=== PATIENT | male | born 1960 | race Caucasian/White ===

== ENCOUNTER 2024-04-14 17:57 | Inpatient (IN) ==
[2024-04-14 21:14] LABS: Hematocrit 48.5 % (38-53); Hemoglobin 16.4 g/dL (13.2-16.3); Mean Corpuscular Hemoglobin 29.3 pg (27-33); Mean Corpuscular Hgb Conc 33.9 g/dL (31-36); Mean Corpuscular Volume 86.6 fL (80-97); Mean Platelet Volume 7.8 fL (7.5-11.2); Platelet Count 265 10^3/uL (150-450); Red Blood Count 5.61 10^6/uL (4.06-5.63); White Blood Count 22.6 10^3/uL (3.6-10.2)
[2024-04-14] MEDS: NS 0.9% 1000 ml BAG 1,000 ML IV ONE (21:45)
[2024-04-14] MEDS: Ondansetron 4 mg VIAL 2 MG/ML 2 ml VIAL IV ONE (21:45)
[2024-04-14 21:46] LABS: ABS Basophils 0.1 10^3/uL (0.0-0.1); ABS Lymphocytes 0.9 10^3/uL (1.0-4.8); ABS Monocytes 2.4 10^3/uL (0.0-1.1); ABS Neutrophils 19.2 10^3/uL (1.5-7.6); ABS Nucleated RBC 0.01 10^3/ul; Lymphocyte % 4.1 %
[2024-04-14 21:53] LABS: ALT 17 U/L (7-52); AST 16 U/L (13-39); Albumin 3.8 g/dL (3.2-5.2); Albumin/Globulin Ratio 1.4 (1-3); Alkaline Phosphatase 58 U/L (35-149); Anion Gap 19 mmol/L (2-16); Blood Urea Nitrogen 15 mg/dL (6-24); CO2 Carbon Dioxide 17 mmol/L (22-32); Calcium 8.8 mg/dL (8.6-10.3); Chloride 98 mmol/L (101-111); Creatinine, Serum 1.28 mg/dL (0.67-1.17); Globulin 2.7 g/dL (2-4); Glucose 89 mg/dL (70-100); Lipase < 10 U/L (11.0-82.0); Potassium 4.1 mmol/L (3.5-5.0); Sodium 134 mmol/L (135-145); Total Bilirubin 1.2 mg/dL (0.2-1.0); Total Protein 6.5 g/dL (6.4-8.9); eGFR CKD-EPI 63.7 (>60)
[2024-04-14] MEDS: Iohexol 350 (CONTRAST) 500 ML MDV IV ONE (22:35)
[2024-04-14] MEDS: Acetaminophen IV 1 GM/100ML 1,000 MG/100 ML BAG IV ONE (22:57)
[2024-04-15] MEDS: Piperacillin/Tazobac 3.375 BAG 3.375 GM/100 ML BAG IV ONE (00:23)
[2024-04-15] MEDS: NS 0.9% 1000 ml BAG 1,000 ML IV ONE (00:23)
[2024-04-15] MEDS ORDERED: cefTRIAXone 1 gm/50 mL D5W 1 GM/50 ML BAG IV SCH (03:15)
[2024-04-15 03:30] LABS: Venous Bicarbonate HCO3 17.2 mmol/L (24-28)
[2024-04-15] MEDS: Lactated Ringers 1000 ml BAG 1,000 ML IV SCH ×2 (03:57→18:20)
[2024-04-15] MEDS ORDERED: metroNIDAZOLE IV 500 MG/100ML 500 MG/100 ML BAG IVPB SCH (04:00)
[2024-04-15 04:17] LABS: Hematocrit 43.4 % (38-53); Hemoglobin 14.8 g/dL (13.2-16.3); Mean Corpuscular Hemoglobin 29.4 pg (27-33); Mean Corpuscular Hgb Conc 34.2 g/dL (31-36); Mean Corpuscular Volume 85.9 fL (80-97); Mean Platelet Volume 7.8 fL (7.5-11.2); Platelet Count 246 10^3/uL (150-450); Red Blood Count 5.04 10^6/uL (4.06-5.63); Red Cell Distribution Width 14.2 % (12-17); White Blood Count 21.1 10^3/uL (3.6-10.2)
[2024-04-15 04:42] LABS: ABS Basophils 0.1 10^3/uL (0.0-0.1); ABS Lymphocytes 1.2 10^3/uL (1.0-4.8); ABS Monocytes 2.5 10^3/uL (0.0-1.1); ABS Neutrophils 17.3 10^3/uL (1.5-7.6); ABS Nucleated RBC 0.03 10^3/ul; Lymphocyte % 5.7 %; Nucleated Red Blood Cells % 0.1 %/100WBC (0.0-0.8)
[2024-04-15 05:08] LABS: C Reactive Protein 97.87 mg/L (<8.01); Calcium 7.7 mg/dL (8.6-10.3); Creatinine, Serum 1.15 mg/dL (0.67-1.17); eGFR CKD-EPI 72.4 (>60)
[2024-04-15 06:17] LABS: Urine Appearance Clear; Urine Bacteria Absent /HPF (Absent); Urine Bilirubin Negative (Negative); Urine Blood 1+ (Negative); Urine Color Yellow; Urine Glucose Negative (Negative); Urine Ketones 4+ (Negative); Urine Nitrite Negative (Negative); Urine Protein 1+ (>=30 mg/dL) (Negative); Urine Red Blood Cell 2+(6-10/hpf) /HPF (0-Trace); Urine Specific Gravity >1.050 (1.002-1.030); Urine Urobilinogen Negative (Negative); Urine White Blood Cell Trace(0-5/hpf) /HPF (0-Trace)
[2024-04-15] MEDS: metroNIDAZOLE IV 500 MG/100ML 500 MG/100 ML BAG IVPB SCH ×2 (08:54→18:20)
[2024-04-15] MEDS: cefTRIAXone 1 gm/50 mL D5W 1 GM/50 ML BAG IV SCH (08:54)
[2024-04-15] MEDS: Metoprolol Tartrate 5 mg VIAL 5 ml VIAL (1 mg/ml) IV PRN (08:54)
[2024-04-15] MEDS ORDERED: Metoprolol Tartrate 5 mg VIAL 5 ml VIAL (1 mg/ml) IV PRN (10:40)
[2024-04-15 11:40] LABS: Magnesium 1.7 mg/dL (1.9-2.7); Phosphorus 5.5 mg/dL (2.5-5.0)
[2024-04-15 11:47] LABS: TSH Ultra Thyroid Stim Horm 7.15 mcIU/mL (0.34-5.60)
[2024-04-15] MEDS: Magnesium Sulfate 2 gm BAG 2 GM/50 ML BAG IVPB ONE (12:53)
[2024-04-15] MEDS: Magnesium Sulfate IV 1GM/100ML 1 GM/100 ML BAG IV ONE (14:08)
[2024-04-15] MEDS: CALCIUM GLUCONATE 1GM/50ML NS 1 GM/50 ML BAG IV ONE (14:49)
[2024-04-15] MEDS ORDERED: metroNIDAZOLE IV 500 MG/100ML 100 ML IVPB SCH (17:00)
[2024-04-15] MEDS: Enoxaparin 40 MG/0.4 ML SYR SUBCUT SCH (22:11)
[2024-04-16] MEDS: FLUVASTATIN 20 MG PO SCH (08:23)
[2024-04-16 08:30] LABS: Hematocrit 41.6 % (38-53); Hemoglobin 14.3 g/dL (13.2-16.3); Mean Corpuscular Hemoglobin 29.3 pg (27-33); Mean Corpuscular Hgb Conc 34.3 g/dL (31-36); Mean Corpuscular Volume 85.3 fL (80-97); Mean Platelet Volume 7.9 fL (7.5-11.2); Platelet Count 222 10^3/uL (150-450); Red Blood Count 4.87 10^6/uL (4.06-5.63); White Blood Count 17.6 10^3/uL (3.6-10.2)
[2024-04-16 08:43] LABS: ABS Lymphocytes 0.8 10^3/uL (1.0-4.8); ABS Monocytes 2.1 10^3/uL (0.0-1.1); ABS Neutrophils 14.6 10^3/uL (1.5-7.6); Lymphocyte % 4.6 %
[2024-04-16 09:07] LABS: Calcium 7.6 mg/dL (8.6-10.3); Creatinine, Serum 0.96 mg/dL (0.67-1.17); Magnesium 1.9 mg/dL (1.9-2.7); Potassium 3.9 mmol/L (3.5-5.0); eGFR CKD-EPI 89.9 (>60)
[2024-04-16] MEDS: Acetaminophen IV 1 GM/100ML 1,000 MG/100 ML BAG IV PRN (15:15)
[2024-04-16] MEDS ORDERED: Morphine 2 MG/ML SYRINGE IV PRN (21:00)
[2024-04-17] MEDS ORDERED: Morphine 2 MG/ML SYRINGE IV PRN (03:00)
[2024-04-17 07:56] LABS: Hematocrit 42.2 % (38-53); Hemoglobin 14.2 g/dL (13.2-16.3); Mean Corpuscular Hemoglobin 28.7 pg (27-33); Mean Corpuscular Hgb Conc 33.7 g/dL (31-36); Mean Corpuscular Volume 85.1 fL (80-97); Mean Platelet Volume 7.9 fL (7.5-11.2); Platelet Count 210 10^3/uL (150-450); Red Blood Count 4.96 10^6/uL (4.06-5.63); Red Cell Distribution Width 13.9 % (12-17); White Blood Count 17.6 10^3/uL (3.6-10.2)
[2024-04-17 08:30] LABS: C Reactive Protein 77.03 mg/L (<8.01); Calcium 7.4 mg/dL (8.6-10.3); Creatinine, Serum 0.91 mg/dL (0.67-1.17); Magnesium 1.8 mg/dL (1.9-2.7); Phosphorus 2.3 mg/dL (2.5-5.0); Potassium 3.6 mmol/L (3.5-5.0); eGFR CKD-EPI 95.9 (>60)
[2024-04-17] MEDS ORDERED: KCL 20 MEQ/100 ML IVPREMIX 20 MEQ/100 ML BAG IV SCH ×2 (09:00→11:00)
[2024-04-17 09:24] LABS: ABS Basophils 0.1 10^3/uL (0.0-0.1); ABS Monocytes 1.9 10^3/uL (0.0-1.1); ABS Neutrophils 14.7 10^3/uL (1.5-7.6); ABS Nucleated RBC 0.01 10^3/ul; Eosinophil % 0.1 %; Lymphocyte % 5.5 %; Nucleated Red Blood Cells % 0.1 %/100WBC (0.0-0.8)
[2024-04-17] MEDS: Magnesium Sulfate 2 gm BAG 2 GM/50 ML BAG IVPB ONE (10:26)
[2024-04-17] MEDS: Potassium Chlor 20 meq TAB.ER PO ONE (10:26)
[2024-04-17] MEDS: Lactated Ringers 1000 ml BAG 1,000 ML IV ONE (10:54)
[2024-04-17] MEDS: Metoprolol Tartrate 5 mg VIAL 5 ml VIAL (1 mg/ml) IV ONE (12:12)
[2024-04-17] MEDS: Lactated Ringers 1000 ml BAG 1,000 ML IV SCH (14:01)
[2024-04-17] MEDS: Potassium Phosphate IV 15 MMOL in NS 0.9% 250 ml 250 ML IVPB ONE (14:06)
[2024-04-17 17:44] LABS: Hematocrit 43.2 % (38-53); Hemoglobin 14.7 g/dL (13.2-16.3); Mean Corpuscular Hgb Conc 33.9 g/dL (31-36); Mean Corpuscular Volume 85.5 fL (80-97); Mean Platelet Volume 7.9 fL (7.5-11.2); Platelet Count 226 10^3/uL (150-450); Red Blood Count 5.05 10^6/uL (4.06-5.63); Red Cell Distribution Width 14.1 % (12-17); White Blood Count 19.6 10^3/uL (3.6-10.2)
[2024-04-17 18:15] LABS: Albumin 2.6 g/dL (3.2-5.2); Albumin/Globulin Ratio 1.4 (1-3); Calcium 7.7 mg/dL (8.6-10.3); Creatinine, Serum 1.04 mg/dL (0.67-1.17); Globulin 1.8 g/dL (2-4); Magnesium 2.1 mg/dL (1.9-2.7); Phosphorus 2.9 mg/dL (2.5-5.0); Potassium 4.5 mmol/L (3.5-5.0); Total Bilirubin 0.4 mg/dL (0.2-1.0); Total Protein 4.4 g/dL (6.4-8.9); eGFR CKD-EPI 81.7 (>60)
[2024-04-17 19:51] LABS: ABS Basophils 0.1 10^3/uL (0.0-0.1); ABS Lymphocytes 1.1 10^3/uL (1.0-4.8); ABS Neutrophils 16.4 10^3/uL (1.5-7.6); ABS Nucleated RBC 0.01 10^3/ul; Lymphocyte % 5.6 %; Nucleated Red Blood Cells % 0.1 %/100WBC (0.0-0.8)
[2024-04-18 06:35] LABS: Hematocrit 41.4 % (38-53); Hemoglobin 13.9 g/dL (13.2-16.3); Mean Corpuscular Hemoglobin 28.7 pg (27-33); Mean Corpuscular Hgb Conc 33.6 g/dL (31-36); Mean Corpuscular Volume 85.3 fL (80-97); Mean Platelet Volume 8.3 fL (7.5-11.2); Platelet Count 220 10^3/uL (150-450); Red Blood Count 4.86 10^6/uL (4.06-5.63); Red Cell Distribution Width 14.1 % (12-17); White Blood Count 20.4 10^3/uL (3.6-10.2)
[2024-04-18 06:41] LABS: ABS Basophils 0.1 10^3/uL (0.0-0.1); ABS Lymphocytes 1.2 10^3/uL (1.0-4.8); ABS Monocytes 1.9 10^3/uL (0.0-1.1); ABS Neutrophils 17.3 10^3/uL (1.5-7.6); ABS Nucleated RBC 0.01 10^3/ul; Eosinophil % 0.1 %; Lymphocyte % 5.7 %
[2024-04-18 09:12] LABS: Calcium 7.3 mg/dL (8.6-10.3); Creatinine, Serum 0.97 mg/dL (0.67-1.17); Potassium 3.4 mmol/L (3.5-5.0); eGFR CKD-EPI 88.8 (>60)
[2024-04-18] MEDS: Potassium Chlor 20 meq TAB.ER PO ONE (10:53)
[2024-04-18] MEDS: Furosemide 20 mg/2 ml IV VIAL IV ONE (10:54)
[2024-04-18] MEDS ORDERED: Vancomycin- *ENEMA* PR 500MG PR SCH (11:00)
[2024-04-18] MEDS: Iohexol 300 (CONTRAST) 10 ML SDV IV ONE (11:42)
[2024-04-18] MEDS: CMCS: Fidaxomicin 200 mg TAB (NF) PO SCH (13:45)
[2024-04-18 14:33] LABS: Hematocrit 46.9 % (38-53); Hemoglobin 15.5 g/dL (13.2-16.3); Mean Corpuscular Hemoglobin 28.4 pg (27-33); Mean Platelet Volume 7.9 fL (7.5-11.2); Platelet Count 229 10^3/uL (150-450); Red Blood Count 5.45 10^6/uL (4.06-5.63); Red Cell Distribution Width 14.2 % (12-17); White Blood Count 24.2 10^3/uL (3.6-10.2)
[2024-04-18 15:10] LABS: ABS Basophils 0.1 10^3/uL (0.0-0.1); ABS Lymphocytes 1.2 10^3/uL (1.0-4.8); ABS Nucleated RBC 0.02 10^3/ul; Eosinophil % 0.1 %; Lymphocyte % 4.8 %; Nucleated Red Blood Cells % 0.1 %/100WBC (0.0-0.8)
[2024-04-18 15:11] LABS: Calcium 7.5 mg/dL (8.6-10.3); Creatinine, Serum 1.05 mg/dL (0.67-1.17); Potassium 3.5 mmol/L (3.5-5.0); eGFR CKD-EPI 80.8 (>60)
[2024-04-18] MEDS: cefTRIAXone 2 gm/50 mL D5W 2 GM/50 ML BAG IV SCH (16:57)
[2024-04-18 17:16] LABS: Calprotectin 1821 mcg/g
[2024-04-18] MEDS: Lactated Ringers 1000 ml BAG 1,000 ML IV ONE (17:29)
[2024-04-18] MEDS: KCL 20 MEQ/100 ML IVPREMIX 20 MEQ/100 ML BAG IV SCH (17:34)
[2024-04-18 19:24] LABS: Magnesium 1.9 mg/dL (1.9-2.7)
[2024-04-18 19:37] LABS: T4, Total 10.5 mcg/dL (6.09-12.23)
[2024-04-18] MEDS: Morphine 2 MG/ML SYRINGE IV PRN (20:59)
[2024-04-19 06:46] LABS: Hematocrit 45.4 % (38-53); Hemoglobin 15.2 g/dL (13.2-16.3); Mean Corpuscular Hemoglobin 28.9 pg (27-33); Mean Corpuscular Hgb Conc 33.5 g/dL (31-36); Mean Corpuscular Volume 86.2 fL (80-97); Platelet Count 220 10^3/uL (150-450); Red Blood Count 5.27 10^6/uL (4.06-5.63); Red Cell Distribution Width 14.5 % (12-17); White Blood Count 27.5 10^3/uL (3.6-10.2)
[2024-04-19 07:22] LABS: Albumin 2.4 g/dL (3.2-5.2); Albumin/Globulin Ratio 1.3 (1-3); Calcium 7.5 mg/dL (8.6-10.3); Creatinine, Serum 1.17 mg/dL (0.67-1.17); Globulin 1.8 g/dL (2-4); Magnesium 1.9 mg/dL (1.9-2.7); Total Bilirubin 0.4 mg/dL (0.2-1.0); Total Protein 4.2 g/dL (6.4-8.9); eGFR CKD-EPI 70.9 (>60)
[2024-04-19 08:10] LABS: ABS Basophils 0.1 10^3/uL (0.0-0.1); ABS Lymphocytes 1.2 10^3/uL (1.0-4.8); ABS Monocytes 2.1 10^3/uL (0.0-1.1); ABS Neutrophils 24.1 10^3/uL (1.5-7.6); ABS Nucleated RBC 0.02 10^3/ul; Eosinophil % 0.2 %; Lymphocyte % 4.4 %; Nucleated Red Blood Cells % 0.1 %/100WBC (0.0-0.8)
[2024-04-19 12:01] LABS: Urine Appearance Clear; Urine Bilirubin Negative (Negative); Urine Blood Trace (Negative); Urine Color Yellow; Urine Glucose Negative (Negative); Urine Ketones 2+ (Negative); Urine Nitrite Negative (Negative); Urine Protein 1+ (>=30 mg/dL) (Negative); Urine Urobilinogen Negative (Negative); Urine pH 6.5 (5.0-8.0)
[2024-04-19 12:04] LABS: Urine Bacteria Absent /HPF (Absent); Urine Red Blood Cell Absent /HPF (0-Trace); Urine Squamous Epithelial Cell Present /HPF (Absent); Urine White Blood Cell Trace(0-5/hpf) /HPF (0-Trace)
[2024-04-20 05:25] LABS: ALT 129 U/L (7-52); Albumin 2.4 g/dL (3.2-5.2); Albumin/Globulin Ratio 1.3 (1-3); Alkaline Phosphatase 144 U/L (35-149); Anion Gap 12 mmol/L (2-16); Blood Urea Nitrogen 15 mg/dL (6-24); CO2 Carbon Dioxide 22 mmol/L (22-32); Calcium 7.4 mg/dL (8.6-10.3); Chloride 99 mmol/L (101-111); Creatinine, Serum 0.86 mg/dL (0.67-1.17); Globulin 1.9 g/dL (2-4); Glucose 100 mg/dL (70-100); Magnesium 1.9 mg/dL (1.9-2.7); Sodium 133 mmol/L (135-145); Total Bilirubin 0.4 mg/dL (0.2-1.0); Total Protein 4.3 g/dL (6.4-8.9); eGFR CKD-EPI 98.5 (>60)
[2024-04-20 05:39] LABS: ABS Basophils 0.1 10^3/uL (0.0-0.1); ABS Eosinophils 0.1 10^3/uL (0.0-0.5); ABS Lymphocytes 1.5 10^3/uL (1.0-4.8); ABS Monocytes 2.3 10^3/uL (0.0-1.1); ABS Neutrophils 20.8 10^3/uL (1.5-7.6); ABS Nucleated RBC 0.01 10^3/ul; Eosinophil % 0.6 %; Hematocrit 43.5 % (38-53); Hemoglobin 14.7 g/dL (13.2-16.3); Lymphocyte % 6.1 %; Mean Corpuscular Hemoglobin 28.8 pg (27-33); Mean Corpuscular Hgb Conc 33.7 g/dL (31-36); Mean Corpuscular Volume 85.3 fL (80-97); Mean Platelet Volume 8.1 fL (7.5-11.2); Platelet Count 207 10^3/uL (150-450); Red Cell Distribution Width 14.4 % (12-17); White Blood Count 24.8 10^3/uL (3.6-10.2)
[2024-04-20 06:44] LABS: Potassium, Whole Blood 3.9 mmol/L (3.4-4.5)
[2024-04-20] MEDS: Lactated Ringers 1000 ml BAG 1,000 ML IV SCH (20:22)
[2024-04-20] MEDS ORDERED: Albuterol/Ipratropium NEB.SOL (2.5/0.5 MG) 3 ML NEB.SOLN INH PRN (23:55)
[2024-04-21 05:47] LABS: ABS Lymphocytes 1.1 10^3/uL (1.0-4.8); ABS Monocytes 1.8 10^3/uL (0.0-1.1); ABS Neutrophils 19.2 10^3/uL (1.5-7.6); ABS Nucleated RBC 0.03 10^3/ul; Eosinophil % 0.2 %; Hematocrit 42.4 % (38-53); Hemoglobin 14.3 g/dL (13.2-16.3); Lymphocyte % 4.8 %; Mean Corpuscular Hemoglobin 28.8 pg (27-33); Mean Corpuscular Hgb Conc 33.8 g/dL (31-36); Mean Corpuscular Volume 85.2 fL (80-97); Nucleated Red Blood Cells % 0.1 %/100WBC (0.0-0.8); Platelet Count 151 10^3/uL (150-450); Red Blood Count 4.98 10^6/uL (4.06-5.63); Red Cell Distribution Width 14.3 % (12-17); White Blood Count 22.2 10^3/uL (3.6-10.2)
[2024-04-21 06:07] LABS: ALT 87 U/L (7-52); Albumin 2.2 g/dL (3.2-5.2); Albumin/Globulin Ratio 1.2 (1-3); Alkaline Phosphatase 140 U/L (35-149); Anion Gap 10 mmol/L (2-16); Blood Urea Nitrogen 14 mg/dL (6-24); CO2 Carbon Dioxide 22 mmol/L (22-32); Calcium 6.9 mg/dL (8.6-10.3); Chloride 101 mmol/L (101-111); Creatinine, Serum 0.71 mg/dL (0.67-1.17); Globulin 1.8 g/dL (2-4); Glucose 113 mg/dL (70-100); Sodium 133 mmol/L (135-145); Total Bilirubin 0.4 mg/dL (0.2-1.0); eGFR CKD-EPI 104.4 (>60)
[2024-04-21 07:18] LABS: Albumin 2.4 g/dL (3.2-5.2); Albumin/Globulin Ratio 1.4 (1-3); Calcium 7.3 mg/dL (8.6-10.3); Creatinine, Serum 0.9 mg/dL (0.67-1.17); Globulin 1.7 g/dL (2-4); Potassium 3.5 mmol/L (3.5-5.0); Total Bilirubin 0.4 mg/dL (0.2-1.0); Total Protein 4.1 g/dL (6.4-8.9); eGFR CKD-EPI 97.2 (>60)
[2024-04-21] MEDS: Lactated Ringers 1000 ml BAG 1,000 ML IV SCH ×2 (09:35→20:35)
[2024-04-21] MEDS: KCL 20 MEQ/100 ML IVPREMIX 20 MEQ/100 ML BAG IV SCH (09:43)
[2024-04-21] MEDS ORDERED: Naloxone 0.4 mg VIAL 0.4 mg/ml 1 ml VIAL IV PRN (12:08)
[2024-04-21] MEDS ORDERED: Ondansetron 4 mg VIAL 2 MG/ML 2 ml VIAL IV PRN (12:08)
[2024-04-21] MEDS ORDERED: Rocuronium 50 mg VIAL 10 mg/ml 5 ml VIAL (50 mg) ONE ×2 (13:48→16:12)
[2024-04-21] MEDS ORDERED: Lidocaine 2% PF 5 ML VIAL ONE (13:48)
[2024-04-21] MEDS ORDERED: Propofol 10 MG/ML 20 ML BTL ONE (13:48)
[2024-04-21] MEDS ORDERED: fentaNYL 250 mcg/5 ml 50 MCG/ML 5 ml VIAL (250 MCG) ONE (13:50)
[2024-04-21] MEDS ORDERED: Albumin Human 5% 25.0 GM/500 ML BTL IV ONE (14:04)
[2024-04-21] MEDS ORDERED: Midazolam 2 mg/2 ml VIAL 1 mg/ml 2 ml VIAL (2 mg) ONE (14:51)
[2024-04-21] MEDS ORDERED: Ondansetron 4 mg VIAL 2 MG/ML 2 ml VIAL ONE (15:32)
[2024-04-21] MEDS ORDERED: Dexamethasone IV 4 MG/ML VIAL 1 ml VIAL ONE (15:32)
[2024-04-21] MEDS ORDERED: HYDROmorphone 0.5 MG/0.5 ML SYRINGE ONE (15:38)
[2024-04-21] MEDS ORDERED: fentaNYL 100 mcg/2 ml 50 MCG/ML VIAL ONE ×2 (16:27→17:43)
[2024-04-21] MEDS: fentaNYL 100 mcg/2 ml 50 MCG/ML VIAL IV PRN (17:46)
[2024-04-21] MEDS: Metoprolol Tartrate 5 mg VIAL 5 ml VIAL (1 mg/ml) IV PRN (19:37)
[2024-04-21 20:17] LABS: Hematocrit 40.2 % (38-53); Hemoglobin 13.6 g/dL (13.2-16.3); Mean Corpuscular Hgb Conc 33.8 g/dL (31-36); Mean Corpuscular Volume 85.7 fL (80-97); Mean Platelet Volume 8.2 fL (7.5-11.2); Platelet Count 176 10^3/uL (150-450); Red Blood Count 4.69 10^6/uL (4.06-5.63); Red Cell Distribution Width 14.3 % (12-17); White Blood Count 25.8 10^3/uL (3.6-10.2)
[2024-04-21] MEDS: cefTRIAXone 2 gm/50 mL D5W 2 GM/50 ML BAG IV SCH (20:41)
[2024-04-21] MEDS: metroNIDAZOLE IV 500 MG/100ML 500 MG/100 ML BAG IVPB SCH (20:44)
[2024-04-21 21:04] LABS: ABS Basophils 0.1 10^3/uL (0.0-0.1); ABS Lymphocytes 0.5 10^3/uL (1.0-4.8); ABS Monocytes 0.7 10^3/uL (0.0-1.1); ABS Neutrophils 24.5 10^3/uL (1.5-7.6); ABS Nucleated RBC 0.01 10^3/ul; Eosinophil % 0.1 %; Lymphocyte % 1.9 %
[2024-04-21 21:09] LABS: Anion Gap 12 mmol/L (2-16); Blood Urea Nitrogen 14 mg/dL (6-24); CO2 Carbon Dioxide 16 mmol/L (22-32); Calcium 7.1 mg/dL (8.6-10.3); Chloride 103 mmol/L (101-111); Creatinine, Serum 0.85 mg/dL (0.67-1.17); Glucose 154 mg/dL (70-100); Sodium 131 mmol/L (135-145); eGFR CKD-EPI 98.9 (>60)
[2024-04-21 21:51] LABS: Magnesium 1.7 mg/dL (1.9-2.7); Potassium Redraw 4.3 mmol/L (3.5-5.0)
[2024-04-22 05:12] LABS: Hematocrit 37.4 % (38-53); Hemoglobin 12.5 g/dL (13.2-16.3); Mean Corpuscular Hemoglobin 28.3 pg (27-33); Mean Corpuscular Hgb Conc 33.3 g/dL (31-36); Mean Corpuscular Volume 84.9 fL (80-97); Mean Platelet Volume 8.5 fL (7.5-11.2); Platelet Count 179 10^3/uL (150-450); Red Cell Distribution Width 14.4 % (12-17); White Blood Count 19.7 10^3/uL (3.6-10.2)
[2024-04-22 06:30] LABS: Anion Gap 6 mmol/L (2-16); Blood Urea Nitrogen 15 mg/dL (6-24); CO2 Carbon Dioxide 25 mmol/L (22-32); Chloride 100 mmol/L (101-111); Creatinine, Serum 0.78 mg/dL (0.67-1.17); Glucose 139 mg/dL (70-100); Sodium 131 mmol/L (135-145); eGFR CKD-EPI 101.5 (>60)
[2024-04-22 06:32] LABS: ABS Lymphocytes 0.7 10^3/uL (1.0-4.8); ABS Monocytes 1.1 10^3/uL (0.0-1.1); ABS Neutrophils 17.8 10^3/uL (1.5-7.6); ABS Nucleated RBC 0.02 10^3/ul; Lymphocyte % 3.7 %; Nucleated Red Blood Cells % 0.1 %/100WBC (0.0-0.8)
[2024-04-22] MEDS: Magnesium Sulfate 2 gm BAG 2 GM/50 ML BAG IVPB ONE (08:34)
[2024-04-22] MEDS: CALCIUM GLUCONATE 1GM/50ML NS 1 GM/50 ML BAG IV SCH (10:15)
[2024-04-22] MEDS: Enoxaparin 40 MG/0.4 ML SYR SUBCUT SCH (14:09)
[2024-04-22] MEDS: Morphine 2 MG/ML SYRINGE IV PRN (16:38)
[2024-04-22] MEDS: Metoprolol Tartrate 5 mg VIAL 5 ml VIAL (1 mg/ml) IV PRN (17:16)
[2024-04-22] MEDS: PPN (PERIPHERAL) 24 HR with D10W 1000 ml BAG 1,000 ML, Amino Acid Infusion 10% 850 ML, ... IV SCH (17:20)
[2024-04-22 20:01] LABS: Potassium Redraw 5.3 mmol/L (3.5-5.0)
[2024-04-22] MEDS ORDERED: Ondansetron 4 mg VIAL 2 MG/ML 2 ml VIAL IV PRN (21:47)
[2024-04-23 06:04] LABS: Hematocrit 36.4 % (38-53); Hemoglobin 12.5 g/dL (13.2-16.3); Mean Corpuscular Hemoglobin 29.2 pg (27-33); Mean Corpuscular Hgb Conc 34.4 g/dL (31-36); Mean Corpuscular Volume 85.1 fL (80-97); Platelet Count 204 10^3/uL (150-450); Red Blood Count 4.28 10^6/uL (4.06-5.63); Red Cell Distribution Width 14.2 % (12-17); White Blood Count 16.9 10^3/uL (3.6-10.2)
[2024-04-23 06:29] LABS: Albumin 2.3 g/dL (3.2-5.2); Albumin/Globulin Ratio 1.4 (1-3); Calcium 7.2 mg/dL (8.6-10.3); Creatinine, Serum 0.55 mg/dL (0.67-1.17); Globulin 1.7 g/dL (2-4); Magnesium 1.9 mg/dL (1.9-2.7); Phosphorus 1.9 mg/dL (2.5-5.0); Potassium 3.6 mmol/L (3.5-5.0); Total Bilirubin 0.3 mg/dL (0.2-1.0); eGFR CKD-EPI 112.8 (>60)
[2024-04-23 08:17] LABS: ABS Basophils 0.1 10^3/uL (0.0-0.1); ABS Eosinophils 0.1 10^3/uL (0.0-0.5); ABS Lymphocytes 0.9 10^3/uL (1.0-4.8); ABS Monocytes 1.5 10^3/uL (0.0-1.1); ABS Neutrophils 14.5 10^3/uL (1.5-7.6); ABS Nucleated RBC 0.02 10^3/ul; Eosinophil % 0.3 %; Lymphocyte % 5.2 %; Nucleated Red Blood Cells % 0.1 %/100WBC (0.0-0.8)
[2024-04-23] MEDS: Potassium Phosphate IV 15 MMOL in NS 0.9% 250 ml 250 ML IVPB ONE (11:03)
[2024-04-23] MEDS: PPN (PERIPHERAL) 24 HR with D10W 1000 ml BAG 1,000 ML, Amino Acid Infusion 10% 850 ML, ... IV SCH (17:32)
[2024-04-24 08:33] LABS: ABS Eosinophils 0.1 10^3/uL (0.0-0.5); ABS Lymphocytes 1.2 10^3/uL (1.0-4.8); ABS Monocytes 1.2 10^3/uL (0.0-1.1); ABS Neutrophils 12.6 10^3/uL (1.5-7.6); ABS Nucleated RBC 0.02 10^3/ul; Eosinophil % 0.7 %; Hematocrit 36.2 % (38-53); Hemoglobin 12.2 g/dL (13.2-16.3); Lymphocyte % 7.8 %; Mean Corpuscular Hemoglobin 28.7 pg (27-33); Mean Corpuscular Hgb Conc 33.7 g/dL (31-36); Mean Corpuscular Volume 85.1 fL (80-97); Nucleated Red Blood Cells % 0.1 %/100WBC (0.0-0.8); Platelet Count 244 10^3/uL (150-450); Red Blood Count 4.26 10^6/uL (4.06-5.63); Red Cell Distribution Width 14.3 % (12-17); White Blood Count 15.2 10^3/uL (3.6-10.2)
[2024-04-24 09:19] LABS: Calcium 7.4 mg/dL (8.6-10.3); Creatinine, Serum 0.57 mg/dL (0.67-1.17); Potassium 3.9 mmol/L (3.5-5.0); eGFR CKD-EPI 111.5 (>60)
[2024-04-24 11:44] LABS: Magnesium 1.9 mg/dL (1.9-2.7); Phosphorus 2.9 mg/dL (2.5-5.0)
[2024-04-24] MEDS: Morphine 2 MG/ML SYRINGE IV PRN (13:57)
[2024-04-25 06:50] LABS: ABS Basophils 0.1 10^3/uL (0.0-0.1); ABS Eosinophils 0.2 10^3/uL (0.0-0.5); ABS Lymphocytes 1.3 10^3/uL (1.0-4.8); ABS Monocytes 0.6 10^3/uL (0.0-1.1); ABS Nucleated RBC 0.02 10^3/ul; Eosinophil % 1.7 %; Hematocrit 33.5 % (38-53); Hemoglobin 11.6 g/dL (13.2-16.3); Lymphocyte % 9.5 %; Mean Corpuscular Hemoglobin 29.6 pg (27-33); Mean Corpuscular Hgb Conc 34.6 g/dL (31-36); Mean Corpuscular Volume 85.5 fL (80-97); Nucleated Red Blood Cells % 0.1 %/100WBC (0.0-0.8); Platelet Count 250 10^3/uL (150-450); Red Blood Count 3.92 10^6/uL (4.06-5.63); Red Cell Distribution Width 14.2 % (12-17); White Blood Count 13.2 10^3/uL (3.6-10.2)
[2024-04-25 07:22] LABS: Albumin 2.3 g/dL (3.2-5.2); Albumin/Globulin Ratio 1.2 (1-3); Calcium 7.5 mg/dL (8.6-10.3); Creatinine, Serum 0.58 mg/dL (0.67-1.17); Globulin 1.9 g/dL (2-4); Potassium 4.3 mmol/L (3.5-5.0); Total Bilirubin 0.3 mg/dL (0.2-1.0); Total Protein 4.2 g/dL (6.4-8.9)
[2024-04-25] MEDS: PPN (PERIPHERAL) 24 HR with D10W 1000 ml BAG 1,000 ML, Amino Acid Infusion 10% 850 ML, ... IV SCH (16:06)
[2024-04-26 06:25] LABS: ABS Eosinophils 0.2 10^3/uL (0.0-0.5); ABS Lymphocytes 1.1 10^3/uL (1.0-4.8); ABS Monocytes 0.6 10^3/uL (0.0-1.1); ABS Neutrophils 9.5 10^3/uL (1.5-7.6); ABS Nucleated RBC 0.01 10^3/ul; Eosinophil % 1.9 %; Hematocrit 32.9 % (38-53); Hemoglobin 11.3 g/dL (13.2-16.3); Mean Corpuscular Hemoglobin 29.4 pg (27-33); Mean Corpuscular Hgb Conc 34.3 g/dL (31-36); Mean Corpuscular Volume 85.5 fL (80-97); Mean Platelet Volume 8.1 fL (7.5-11.2); Nucleated Red Blood Cells % 0.1 %/100WBC (0.0-0.8); Platelet Count 292 10^3/uL (150-450); Red Blood Count 3.85 10^6/uL (4.06-5.63); White Blood Count 11.5 10^3/uL (3.6-10.2)
[2024-04-26 06:38] LABS: Albumin 2.4 g/dL (3.2-5.2); Albumin/Globulin Ratio 1.3 (1-3); Calcium 7.5 mg/dL (8.6-10.3); Creatinine, Serum 0.65 mg/dL (0.67-1.17); Globulin 1.9 g/dL (2-4); Potassium 4.4 mmol/L (3.5-5.0); Total Bilirubin 0.3 mg/dL (0.2-1.0); Total Protein 4.3 g/dL (6.4-8.9); eGFR CKD-EPI 107.2 (>60)
[2024-04-27 05:45] LABS: ABS Basophils 0.1 10^3/uL (0.0-0.1); ABS Eosinophils 0.2 10^3/uL (0.0-0.5); ABS Lymphocytes 1.5 10^3/uL (1.0-4.8); ABS Monocytes 0.8 10^3/uL (0.0-1.1); ABS Neutrophils 8.9 10^3/uL (1.5-7.6); Eosinophil % 1.9 %; Hematocrit 36.2 % (38-53); Hemoglobin 11.9 g/dL (13.2-16.3); Lymphocyte % 12.9 %; Mean Corpuscular Hemoglobin 28.2 pg (27-33); Mean Corpuscular Hgb Conc 32.9 g/dL (31-36); Mean Corpuscular Volume 85.8 fL (80-97); Mean Platelet Volume 7.9 fL (7.5-11.2); Platelet Count 376 10^3/uL (150-450); Red Blood Count 4.22 10^6/uL (4.06-5.63); Red Cell Distribution Width 14.6 % (12-17); White Blood Count 11.4 10^3/uL (3.6-10.2)
[2024-04-27 06:17] LABS: Albumin 2.4 g/dL (3.2-5.2); Albumin/Globulin Ratio 1.1 (1-3); Calcium 7.8 mg/dL (8.6-10.3); Creatinine, Serum 0.7 mg/dL (0.67-1.17); Globulin 2.2 g/dL (2-4); Potassium 4.7 mmol/L (3.5-5.0); Total Bilirubin 0.4 mg/dL (0.2-1.0); Total Protein 4.6 g/dL (6.4-8.9); eGFR CKD-EPI 104.8 (>60)
[2024-04-27] MEDS: Amoxicillin/Clavul 500/125 TAB (Augmentin 500 mg tab) PO SCH (11:17)
[2024-04-27 14:49] LABS: Hepatitis B Surface Antigen Nonreactive (Nonreactive)
[2024-04-27 14:54] LABS: Hepatitis A Ab IgM Negative (Negative); Hepatitis B Core IgM Nonreactive (Nonreactive)
[2024-04-27 15:06] LABS: Hepatitis C Antibody Negative (Negative)
[2024-04-28 05:46] LABS: ABS Basophils 0.1 10^3/uL (0.0-0.1); ABS Eosinophils 0.2 10^3/uL (0.0-0.5); ABS Lymphocytes 1.7 10^3/uL (1.0-4.8); ABS Neutrophils 8.4 10^3/uL (1.5-7.6); Hematocrit 36.4 % (38-53); Hemoglobin 12.5 g/dL (13.2-16.3); Lymphocyte % 14.8 %; Mean Corpuscular Hemoglobin 29.2 pg (27-33); Mean Corpuscular Hgb Conc 34.2 g/dL (31-36); Mean Corpuscular Volume 85.1 fL (80-97); Platelet Count 435 10^3/uL (150-450); Red Blood Count 4.28 10^6/uL (4.06-5.63); Red Cell Distribution Width 14.8 % (12-17); White Blood Count 11.4 10^3/uL (3.6-10.2)
[2024-04-28 06:08] LABS: Albumin 2.6 g/dL (3.2-5.2); Albumin/Globulin Ratio 1.1 (1-3); Calcium 7.9 mg/dL (8.6-10.3); Creatinine, Serum 0.72 mg/dL (0.67-1.17); Globulin 2.4 g/dL (2-4); Potassium 4.6 mmol/L (3.5-5.0); Total Bilirubin 0.4 mg/dL (0.2-1.0); eGFR CKD-EPI 103.9 (>60)
[2024-04-28 09:58] VITALS: BP 113/74
== END 2024-04-28 13:43 | disposition home or self-care (01) | DRG 221 ==
LOC: EDHOLD 17:57 → ED 17:57 → SUATTDRO 04-15 01:17 → EDHOLD 04-15 08:40 → SSU 04-15 10:46 → SUATTDRO 04-16 08:50 → MEDTELE 04-17 13:52 → ICU 04-18 14:44 → MEDTELE 04-22 18:23
PROVIDERS: ADMIT Internal Medicine; ATTEND Family Medicine

== ENCOUNTER 2024-06-23 00:25 | Observation (INO) ==
[2024-06-23 01:17] LABS: ABS Basophils 0.1 10^3/uL (0.0-0.1); ABS Eosinophils 0.1 10^3/uL (0.0-0.5); ABS Lymphocytes 3.3 10^3/uL (1.0-4.8); ABS Monocytes 0.6 10^3/uL (0.0-1.1); ABS Neutrophils 3.3 10^3/uL (1.5-7.6); Eosinophil % 0.8 %; Hematocrit 37.3 % (38-53); Hemoglobin 12.5 g/dL (13.2-16.3); Lymphocyte % 45.5 %; Mean Corpuscular Hemoglobin 29.2 pg (27-33); Mean Corpuscular Hgb Conc 33.6 g/dL (31-36); Mean Corpuscular Volume 86.9 fL (80-97); Mean Platelet Volume 6.7 fL (7.5-11.2); Nucleated Red Blood Cells % 0.1 %/100WBC (0.0-0.8); Platelet Count 240 10^3/uL (150-450); Red Blood Count 4.29 10^6/uL (4.06-5.63); Red Cell Distribution Width 15.2 % (12-17); White Blood Count 7.3 10^3/uL (3.6-10.2)
[2024-06-23] MEDS: Ondansetron 4 mg VIAL 2 MG/ML 2 ml VIAL IV ONE (03:06)
[2024-06-23] MEDS: Piperacillin/Tazobac 3.375 BAG 3.375 GM/100 ML BAG IV ONE (03:13)
[2024-06-23 03:56] LABS: ALT 44 U/L (7-52); AST 39 U/L (13-39); Albumin/Globulin Ratio 1.4 (1-3); Alkaline Phosphatase 84 U/L (35-149); Anion Gap 12 mmol/L (2-16); Blood Urea Nitrogen 12 mg/dL (6-24); C Reactive Protein < 1.00 mg/L (<8.01); CO2 Carbon Dioxide 25 mmol/L (22-32); Calcium 8.9 mg/dL (8.6-10.3); Chloride 97 mmol/L (101-111); Creatinine, Serum 0.95 mg/dL (0.67-1.17); Globulin 2.9 g/dL (2-4); Glucose 118 mg/dL (70-100); Potassium 3.4 mmol/L (3.5-5.0); Sodium 134 mmol/L (135-145); Total Protein 6.9 g/dL (6.4-8.9); eGFR CKD-EPI 91.1 (>60)
[2024-06-23] MEDS: HYDROmorphone 0.5 MG/0.5 ML SYRINGE IV SLOW PU PRN (04:05)
[2024-06-23] MEDS: Iohexol 350 (CONTRAST) 500 ML MDV IV ONE (04:38)
[2024-06-23] MEDS: Lactated Ringers 1000 ml BAG 1,000 ML IV SCH (04:59)
[2024-06-23] MEDS ORDERED: Lidocaine 2% PF 5 ML VIAL ONE (06:23)
[2024-06-23] MEDS ORDERED: Rocuronium 50 mg VIAL 10 mg/ml 5 ml VIAL (50 mg) ONE (06:23)
[2024-06-23] MEDS ORDERED: Propofol 10 MG/ML 20 ML BTL ONE (06:23)
[2024-06-23] MEDS ORDERED: Midazolam 2 mg/2 ml VIAL 1 mg/ml 2 ml VIAL (2 mg) ONE ×2 (06:23→07:20)
[2024-06-23] MEDS ORDERED: fentaNYL 100 mcg/2 ml 50 MCG/ML VIAL ONE ×2 (06:23→07:20)
[2024-06-23] MEDS ORDERED: Ondansetron 4 mg VIAL 2 MG/ML 2 ml VIAL ONE (06:24)
[2024-06-23] MEDS ORDERED: Dexamethasone IV 4 MG/ML VIAL 1 ml VIAL ONE (06:24)
[2024-06-23] MEDS ORDERED: Piperacillin/Tazobac 3.375 BAG 3.375 GM/100 ML BAG IV ONE (06:48)
[2024-06-23] MEDS: Piperacillin/Tazobac 3.375 BAG 3.375 GM/100 ML BAG IV SCH (06:55)
[2024-06-23] MEDS ORDERED: Bupivacaine 0.5% SDV PF 30ML VIAL ONE (07:04)
[2024-06-23] MEDS ORDERED: Phenylephrine 40 mcg/mL 10mL (400mcg) SYRINGE ONE (07:51)
[2024-06-23] MEDS ORDERED: Acetaminophen IV 1 GM/100ML 1,000 MG/100 ML BAG IV ONE (08:06)
[2024-06-23] MEDS ORDERED: fentaNYL 100 mcg/2 ml 50 MCG/ML VIAL IV PRN (09:16)
[2024-06-23] MEDS ORDERED: Metoclopramide 5 MG/ML VIAL (10 mg) IV PRN (09:16)
[2024-06-23] MEDS ORDERED: Naloxone 0.4 mg VIAL 0.4 mg/ml 1 ml VIAL IV PRN ×2 (09:16)
[2024-06-23] MEDS ORDERED: Ondansetron 4 mg VIAL 2 MG/ML 2 ml VIAL IV PRN (09:16)
[2024-06-23] MEDS ORDERED: Metoprolol Tartrate 5 mg VIAL 5 ml VIAL (1 mg/ml) ONE (09:49)
[2024-06-23] MEDS: Metoprolol Tartrate 5 mg VIAL 5 ml VIAL (1 mg/ml) IV ONE (09:57)
[2024-06-24] MEDS: Enoxaparin 40 MG/0.4 ML SYR SUBCUT SCH (09:57)
[2024-06-24 14:17] VITALS: BP 105/64
== END 2024-06-24 17:45 | disposition home or self-care (01) ==
LOC: EDHOLD 00:25 → ED 00:25 → AA 06:39 → SSU 10:32
PROVIDERS: ADMIT Surgery; ATTEND Surgery

== ENCOUNTER 2024-08-10 22:42 | Observation (INO) ==
[2024-08-11] MEDS: Ondansetron 4 mg VIAL 2 MG/ML 2 ml VIAL IV ONE (00:08)
[2024-08-11 00:29] LABS: ABS Eosinophils 0.1 10^3/uL (0.0-0.5); ABS Lymphocytes 2.4 10^3/uL (1.0-4.8); ABS Monocytes 0.7 10^3/uL (0.0-1.1); ABS Neutrophils 7.6 10^3/uL (1.5-7.6); ABS Nucleated RBC 0.01 10^3/ul; Eosinophil % 0.5 %; Hematocrit 43.4 % (38-53); Hemoglobin 14.9 g/dL (13.2-16.3); Lymphocyte % 22.6 %; Mean Corpuscular Hemoglobin 29.1 pg (27-33); Mean Corpuscular Hgb Conc 34.2 g/dL (31-36); Mean Corpuscular Volume 85.2 fL (80-97); Mean Platelet Volume 6.7 fL (7.5-11.2); Nucleated Red Blood Cells % 0.1 %/100WBC (0.0-0.8); Platelet Count 255 10^3/uL (150-450); Red Cell Distribution Width 13.7 % (12-17); White Blood Count 10.8 10^3/uL (3.6-10.2)
[2024-08-11 00:40] LABS: Activated Partial Thrombo Time 27.5 seconds (26.0-38.0); INR 0.99 (0.85-1.14)
[2024-08-11 00:44] LABS: Calcium 9.7 mg/dL (8.6-10.3); Creatinine, Serum 1.05 mg/dL (0.67-1.17); Potassium 3.8 mmol/L (3.5-5.0); eGFR CKD-EPI 80.8 (>60)
[2024-08-11] MEDS ORDERED: Ondansetron 4 mg VIAL 2 MG/ML 2 ml VIAL IV PRN (00:53)
[2024-08-11] MEDS ORDERED: HYDROmorphone 0.5 MG/0.5 ML SYRINGE IV SLOW PU PRN ×2 (01:00→11:08)
[2024-08-11] MEDS: Lactated Ringers 1000 ml BAG 1,000 ML IV SCH (01:22)
[2024-08-11] MEDS ORDERED: ceFOXitin 2 GM IVPREMIX 2 GM/50 ML BAG ONE (08:41)
[2024-08-11] MEDS ORDERED: Bupivacaine 0.25% EPI 200,000 30 ML SDV ONE (08:54)
[2024-08-12] MEDS: Enoxaparin 40 MG/0.4 ML SYR SUBCUT SCH (09:35)
[2024-08-13 13:55] VITALS: BP 102/70
== END 2024-08-13 17:34 | disposition home or self-care (01) ==
LOC: EDHOLD 22:42 → ED 22:42 → SSU 08-11 02:51
PROVIDERS: ADMIT Surgery; ATTEND Surgery